=== PATIENT | male | born 1960 | race Caucasian/White ===

== ENCOUNTER 2016-05-23 10:58 | Inpatient (IN) | payer OTHER ==
[~2016-05-23] VITALS: Ht 180.3 cm; Wt 108.9 kg
[2016-05-23 11:04] VITALS: BP 148/75; PULSE 106; RESP 24; TEMP 99.8; O2SAT 93
--- NOTE | 2016-05-23 11:12 | NUR ---
Placed in room 5 . Placed on diagnostic cardiac sonographer, blood pressure machine and pulse oximeter. To gown for exam. Side rails up. Report given to Gaudencio HILLS.
[2016-05-23] MEDS ORDERED: DEXAMETHASONE SOD PHOSPHATE 10 MG/ML VIAL IVP ONE (11:15)
[2016-05-23] MEDS ORDERED: cefTRIAXone 1 GM IVPB PREMIX 50 ML IV ONE (11:15)
[2016-05-23] MEDS ORDERED: NS 1000 ML BAG IV ONE (11:15)
[2016-05-23] MEDS ORDERED: IPRATROPIUM/ALBUTEROL SULFATE 3 ML AMPUL.NEB INH ONE (11:15)
[2016-05-23] MEDS ORDERED: KETOROLAC TROMETHAMINE 30 MG VIAL IVP ONE (11:15)
--- NOTE | 2016-05-23 11:27 | NUR ---
Pt sent by Dr. Todd for possible pneumonia. C/O cough, fever, chills x5 days. Denies chest pain, short of breath with mild to moderate activity.
--- NOTE | 2016-05-23 11:30 | NUR ---
RT at bedside for breathing tx
[2016-05-23 11:34] LABS: BASOPHILS % (AUTO) 0.2 % (0.0-2.0); EOSINOPHILS # (AUTO) 0.1 K/uL (0.0-0.4); EOSINOPHILS % (AUTO) 0.3 % (0.0-4.0); HEMATOCRIT 22.7 % (36-54); HEMOGLOBIN 7.5 g/dL (14.0-18.0); LYMPHOCYTES # (AUTO) 0.8 K/uL (1.0-5.5); LYMPHOCYTES % (AUTO) 3.6 % (20.5-51.5); MEAN CORPUSCULAR HEMOGLOBIN 25 pg (27-31); MEAN CORPUSCULAR HGB CONC 33 % (32-36); MEAN CORPUSCULAR VOLUME 77 fL (79.0-98.0); MONOCYTES % (AUTO) 4.7 % (1.7-9.3); NEUTROPHILS # (AUTO) 19.1 K/uL (1.8-7.7); NEUTROPHILS % (AUTO) 91.2 % (40.0-70.0); PLATELET COUNT (AUTO) 391 K/uL (130-430); RED BLOOD CELL COUNT(AUTO) 2.96 MIL/uL (4.2-6.2); RED CELL DISTRIBUTION WIDTH 15.9 % (9.0-15.0)
[2016-05-23 11:45] LABS: CALCIUM 7.8 mg/dL (8.4-11.0); CREATININE 5.26 mg/dL (0.55-1.30); POTASSIUM 4.5 mmol/L (3.5-5.1)
[2016-05-23 11:49] LABS: INR 1.2 (0.80-1.20)
[2016-05-23 11:50] LABS: ALBUMIN 2.1 g/dL (3.4-4.8); TOTAL BILIRUBIN 0.5 mg/dL (0.0-1.0); TOTAL PROTEIN, SERUM 7.7 g/dL (6.4-8.3)
--- NOTE | 2016-05-23 11:52 | NUR ---
Medicated per MD orders. IVF and IVPB infusing to LAC with no s/s of infiltration. Pt sat 84% RA, states that the breathing treatment didn't help this time. But states "back in January, they helped alot". Pt placed on NC @2L.
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
[2016-05-23] MEDS ORDERED: AZITHROMYCIN 500 MG in NS 250 ML IV ONE (12:00)
[2016-05-23] MEDS ORDERED: NPH,100V SUBCUT ×2 (12:04)
[2016-05-23] MEDS ORDERED: INSU100V7 SUBCUT (12:04)
[2016-05-23] MEDS ORDERED: METO25TA3 PO (12:04)
[2016-05-23] MEDS ORDERED: CLAR500T PO (12:04)
[2016-05-23] MEDS ORDERED: NOR10 PO (12:04)
[2016-05-23] MEDS ORDERED: VANCOMYCIN HCL 1,000 MG in NS 250 ML IV ONE ×2 (12:15→20:00)
[2016-05-23] MEDS ORDERED: VANCOMYCIN HCL 1000 MG/VIAL IV ONE (12:16)
--- NOTE | 2016-05-23 12:46 | NUR ---
Care endorsed to JEANA Casey
--- NOTE | 2016-05-23 13:00 | NUR ---
PT. CARE ASSUMED, PT. IN BED SIDERAILS UP, NO COMPLAINTS AT THIS TIME. STATES THAT HE VOIDED HOWEVER SPILLED URINE ON FLOOR
--- NOTE | 2016-05-23 14:05 | NUR ---
Patient will be admitted to care of DR. RAVI. Admitted to MEDSUR[facility] unit. Will go to room 130 A. Belongings list completed. Summary report printed. Report given to KILEY.
--- NOTE | 2016-05-23 14:10 | NUR ---
Admission Note Received patient from ER with diagnosis of cellulitis and possible sepsis. Initial Plan of Care discussed-patient verbalized understanding. Family at bedside. Oriented to room, call light, pain management and safety.
--- NOTE | 2016-05-23 14:10 | NUR ---
Initial Note Received pt from ER, in stable condition, no s/s of distress or sob noted, pt has no c/o pain at this time. Pt aaox4, verbal. IV catheter patent, no signs of infection or infiltration noted. Bed at lowest position, call light within reach, will continue to monitor pt for any changes. Wound care performed on right foot, 2 wounds, cleansed with normal saline, z guard to periwound, hydrogel to wound bed, covered with foam dressing, kerlix to keep in place, pt tolerated. Fall precautions in place.
[2016-05-23 14:38] VITALS: BP 119/88; PULSE 87; RESP 18; O2SAT 100
[2016-05-23 16:12] VITALS: BP 116/84; PULSE 86; RESP 18; TEMP 98.9; O2SAT 100
--- NOTE | 2016-05-23 16:39 | NUR ---
Rounds Pt in bed, no s/s of distress or sob noted, pt has no c/o pain at this time, pt in stable condition, pt resting comfortably, will continue to monitor pt for any changes.
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
--- NOTE | 2016-05-23 17:15 | NUR ---
Blood Glucose Patients blood glucose was checked and it was 245, no orders for checking as md as not seen him but pt is diabetic, dr keating making his rounds at this time and aware pt needs accucheck orders.
[2016-05-23] MEDS ORDERED: NS 500 ML IV ONE (18:00)
--- NOTE | 2016-05-23 18:00 | NUR ---
CALLED NEPHROLOGY CONSULT TO DR BURTON, DR. MCCONNELL MOLD MACHINE OPERATOR, RE: RENAL FAILURE.. SPOKE TO KAYE
--- NOTE | 2016-05-23 18:01 | NUR ---
CALLED SURGERY CONSULT TO DR ARCHIBALD, RE: CELLULITIS. SPOKE TO KAYE
--- NOTE | 2016-05-23 18:05 | NUR ---
CALLED ID CONSULT TO DR STYLES, RE: CELLULITIS. SPOKE TO WILLIAN
[2016-05-23] MEDS: NACL 0.9% 1,000 ML IV SCH (18:07)
[2016-05-23] MEDS ORDERED: DEXTROSE 50% JECT 50 ML DISP.SYRIN IVP PRN (18:15)
--- NOTE | 2016-05-23 18:28 | NUR ---
Closing Note Pt in bed, in stable condition, no s/s of distress or sob noted, pt has no c/o pain at this time. Pt aaox4, verbal. IV catheter patent, no signs of infection or infiltration noted. Bed at lowest position, call light within reach, will endorse care of pt to incoming nurse. Fall precautions in place. Dr. Anders making his rounds and looked at wound and gave new orders.
[2016-05-23 19:15] LABS: BLOOD GAS PH 7.361 (7.350-7.450)
[2016-05-23 19:16] LABS: BLOOD GAS BASE EXCESS -8.8 mmol/L (-3.0-3.0)
[2016-05-23 19:17] LABS: ABG TOTAL HEMOGLOBIN 7.8 G/dL (12.0-18.0); BLOOD GAS COHb% 0.3 % (0.5-1.5); BLOOD GAS HHB 8.3 % (0.0-6.0); BLOOD O2Hb% 91.1 % (94.0-97.0)
[2016-05-23] MEDS: PIPERACILLIN/TAZO 2.25G/DEX-IS 50 ML IV SCH ×2 (19:26→23:38)
--- NOTE | 2016-05-23 19:40 | NUR ---
initial nursing notes: Patient is awake. Patient has IV fluid infusing on the left AC IV access. Patient denies of having pain at this time. Patient has a dressing on the right foot.
--- NOTE | 2016-05-23 19:41 | NUR ---
PAGED DR JOHN, TAMARA SMALL
[2016-05-23 19:45] VITALS: BP 122/71; PULSE 83; RESP 15; TEMP 97; O2SAT 95
[2016-05-23] MEDS: LACTOBACILLUS RHAMNOSUS GG 1 CAP CAPSULE PO SCH (21:34)
--- NOTE | 2016-05-23 21:40 | NUR ---
nursing rounds: Patient watching television. Notified Dr. Juares regarding total Hemoglobin = 7.8. Dr. Juares made a telephone order to transfuse 1 unit of PRBC. Patient made aware.
--- NOTE | 2016-05-23 23:00 | NUR ---
nursing rounds: Patient is made aware that he will be NPO after midnight for right foot debridement tomorrow per Dr. Kwok. Patient verbalized understanding.
[2016-05-23] MEDS: INSULIN REGULAR, HUMAN 100 UNITS/ML, 10 ML VIAL (novoLIN R) SUBCUT PRN (23:53)
[2016-05-24] VITALS (7 sets, daily range): BP systolic 120–139; BP diastolic 65–72; PULSE 62–82; RESP 16–18; TEMP 97.1–98.2; O2SAT 96–98; Ht 180.3 cm; Wt 108.9 kg
--- NOTE | 2016-05-24 | NUR ---
nursing rounds: Patient requested to hold off with the blood transfusion until after he has discussed with his primary doctor in the morning. Patient declines to sign the consent and wanted to ask his primary doctor if he has other options besides blood transfusion.
--- NOTE | 2016-05-24 00:09 | NUR ---
PAGED DR JOHN, TAMARA DON.
[2016-05-24 01:31] LABS: HEMATOCRIT 21.6 % (36-54); HEMOGLOBIN 6.9 g/dL (14.0-18.0)
--- NOTE | 2016-05-24 01:38 | NUR ---
PAGED DR JOHN, [facility].
[2016-05-24 01:45] LABS: IRON (SERUM) 7 mcg/dL (59-158); TOTAL IRON BIND. CAPACITY 190 ug/dL (250-450)
--- NOTE | 2016-05-24 02:00 | NUR ---
nursing rounds: Paged Dr. Juares to notify latest H & H: 6.9 & 21.6. Waiting for doctor to call back.
--- NOTE | 2016-05-24 03:48 | NUR ---
Pagedanisha Juares, [facility].
--- NOTE | 2016-05-24 04:00 | NUR ---
nursing rounds: Dr. Juares was made aware about latest H & H: 6.9 & 21.6. Patient was also made aware of the latest H& H result. Patient continues to decline to sign the consent and would like to speak his primary doctor in the morning.
[2016-05-24] MEDS: PIPERACILLIN/TAZO 2.25G/DEX-IS 50 ML IV SCH ×3 (05:18→17:54)
[2016-05-24] MEDS: NACL 0.9% 1,000 ML IV SCH (05:20)
--- NOTE | 2016-05-24 06:00 | NUR ---
nursing rounds: Patient calmly resting in bed. Patient has no respiratory distress.
[2016-05-24 06:36] LABS: BASOPHILS % (AUTO) 0.1 % (0.0-2.0); HEMATOCRIT 23.5 % (36-54); HEMOGLOBIN 7.6 g/dL (14.0-18.0); LYMPHOCYTES # (AUTO) 0.7 K/uL (1.0-5.5); LYMPHOCYTES % (AUTO) 3.1 % (20.5-51.5); MEAN CORPUSCULAR HEMOGLOBIN 25 pg (27-31); MEAN CORPUSCULAR HGB CONC 32 % (32-36); MEAN CORPUSCULAR VOLUME 78 fL (79.0-98.0); MONOCYTES # (AUTO) 0.5 K/uL (0.0-1.0); MONOCYTES % (AUTO) 2.5 % (1.7-9.3); NEUTROPHILS # (AUTO) 20.8 K/uL (1.8-7.7); NEUTROPHILS % (AUTO) 94.3 % (40.0-70.0); PLATELET COUNT (AUTO) 356 K/uL (130-430); RED BLOOD CELL COUNT(AUTO) 3.01 MIL/uL (4.2-6.2)
[2016-05-24] MEDS: INSULIN REGULAR, HUMAN 100 UNITS/ML, 10 ML VIAL (novoLIN R) SUBCUT PRN ×4 (06:51→23:25)
[2016-05-24 07:13] LABS: ALBUMIN 1.8 g/dL (3.4-4.8); CALCIUM 7.8 mg/dL (8.4-11.0); CREATININE 4.52 mg/dL (0.55-1.30); TOTAL BILIRUBIN 0.3 mg/dL (0.0-1.0); TOTAL PROTEIN, SERUM 7.4 g/dL (6.4-8.3)
--- NOTE | 2016-05-24 07:30 | NUR ---
rn notes: patient is aaox 4. afebrile. vss stable. lungs bilaterally clear. abdomen soft and non distended. npo status. has iv access on the left ac #18 and lt hand #22. with normal saline at 100cc/hr infusing on well. call lights within reach. safety measures maintained. bed in low position. patient is obese. had a bowel movement x 2 this morning. informed patient to call for assistance.
--- NOTE | 2016-05-24 07:30 | NUR ---
rn notes: patient is aaox 4 afebrile. vss stable. lungs bilaterally clear. abdomen soft and non distended. has iv access on the left ac !8 saline lock. left hand #22 with Normal saline 100c/hr infusing on well. call lights within reach. safety measures maintained. has dressing on the right foot dry/intact. npo status for possible surgery today with Dr Kwok. for debridement. bed in low position. informed patient to call for assistance.
--- NOTE | 2016-05-24 07:43 | NUR ---
closing nursing notes: Patient is awake, alert and oriented X 4. Patient is in no acute respiratory distress. No episodes of fall and no injuries throughout the operation shift supervisor. Provided nursing report to incoming morning shift nurse, JEANA Munguia, at patient's bedside.
--- NOTE | 2016-05-24 08:00 | NUR ---
refusing to signed the consent for blood.
--- NOTE | 2016-05-24 08:07 | NUR ---
spoke to Dr Melinda [facility] regarding the lab results. will come to see the patient.
--- NOTE | 2016-05-24 08:10 | NUR ---
finally signed the consent with proper explanation to the patient.
--- NOTE | 2016-05-24 08:15 | NUR ---
2 units of prbc requesition sent to lab.
[2016-05-24] MEDS: SILVER 44.4 ML GEL.ER.ML. TP SCH (09:00)
--- NOTE | 2016-05-24 09:00 | NUR ---
Dr Juares came to evaluate the patient at this time.
[2016-05-24] MEDS: METOPROLOL SUCCINATE 25 MG TAB.SR.24H (TOPROL XL) PO SCH (09:31)
--- NOTE | 2016-05-24 09:34 | NUR ---
toprol xl po given sip of water.
--- NOTE | 2016-05-24 11:42 | NUR ---
latest bs is 439mg/dl. coverage given and informed .
--- NOTE | 2016-05-24 11:42 | NUR ---
and brother at the bedside.
--- NOTE | 2016-05-24 11:43 | NUR ---
awaiting for dr nunez to come.
--- NOTE | 2016-05-24 12:00 | NUR ---
Dr tyson called for bs is 439mg.dl. order made 4 units of regular insulin given.
[2016-05-24] MEDS ORDERED: INSULIN REGULAR, HUMAN 100 UNITS/ML, 10 ML VIAL (novoLIN R) SUBCUT ONE (12:15)
--- NOTE | 2016-05-24 13:55 | NUR ---
first unit of prbc of blood started at this time. afebrile. and vss stable and documented.
--- NOTE | 2016-05-24 15:50 | NUR ---
Dr Lawrence came and evaluate the patient spoke to the patient and at the bedside.
--- NOTE | 2016-05-24 16:45 | NUR ---
first unite prbc ended at this time. no hemolytic reaction noted. patient is stable no sob nor distress noted.
--- NOTE | 2016-05-24 17:20 | NUR ---
started the 2nd unit prbc. patient stable afebrile. vss stable.
[2016-05-24] MEDS: LACTOBACILLUS RHAMNOSUS GG 1 CAP CAPSULE PO SCH ×2 (17:54→20:43)
--- NOTE | 2016-05-24 18:00 | NUR ---
Dr Yanez covering for Dr Nguyen called and will see the patient tomorrow.
--- NOTE | 2016-05-24 19:00 | NUR ---
please follow up Dr Zambrano endocrinology called. and Dr Yanez covering for Dr Nguyen.
--- NOTE | 2016-05-24 19:18 | NUR ---
Consultation Paged Reason for consultation: Hi Blood Sugar level Was consult called: Yes Person who was notified: Miryam Consulting Physician: Lidia Alexandre; Dr Ennis is on-call for Dr Zambrano Home Health Care Physician Specialty: Endocrinology Home Health Care Physician
--- NOTE | 2016-05-24 19:40 | NUR ---
initial nursing notes: Patient is awake. Patient has IV fluid infusing on the left hand IV access. Patient denies of having pain at this time. Patient has a dressing on the right foot.
--- NOTE | 2016-05-24 19:40 | NUR ---
sbar report given to incoming nurse James HLILS
[2016-05-24] MEDS ORDERED: VANCOMYCIN HCL 750 MG in NS 250 ML IV SCH (20:00)
[2016-05-24] MEDS: LEVOFLOXACIN 250 MG/D5W 50 ML IV SCH (20:44)
--- NOTE | 2016-05-24 21:40 | NUR ---
nursing rounds: Patient ambulatory to the bathroom with assist. Patient has no episode of falls and no injuries.
[2016-05-24] MEDS: CEFTAROLINE FOSAMIL ACETATE 400 MG in NS 250 ML IV SCH (22:52)
--- NOTE | 2016-05-24 23:40 | NUR ---
nursing rounds: Patient's blood glucose was 509 and repeat blood glucose was 491. Dr. Juares was made aware of the blood glucose results. Insulin coverage provided.
[2016-05-25] VITALS (16 sets, daily range): BP systolic 121–174; BP diastolic 67–101; PULSE 73–86; RESP 16–26; TEMP 96.9–98.5; O2SAT 96–99
--- NOTE | 2016-05-25 00:13 | NUR ---
paged for Dr Juares, dialed . s/w Stella.
--- NOTE | 2016-05-25 01:40 | NUR ---
nursing rounds: Patient calmly resting in bed. Call light within patient's reach.
[2016-05-25] MEDS: JECT IV SCH ×3 (01:41→17:00)
[2016-05-25] MEDS: NACL 0.45% IV SCH ×3 (01:41→17:00)
[2016-05-25] MEDS: SODIUM BICARBONATE 8.4% IV SCH ×3 (01:41→17:00)
--- NOTE | 2016-05-25 03:40 | NUR ---
nursing rounds: Patient is asleep. Patient has no shortness of breath.
--- NOTE | 2016-05-25 05:40 | NUR ---
nursing rounds: Patient calmly resting in bed. Patient has no respiratory distress.
[2016-05-25] MEDS: INSULIN REGULAR, HUMAN 100 UNITS/ML, 10 ML VIAL (novoLIN R) SUBCUT PRN ×2 (06:49→13:46)
[2016-05-25 07:29] LABS: ALBUMIN 1.7 g/dL (3.4-4.8); CALCIUM 7.7 mg/dL (8.4-11.0); CREATININE 3.4 mg/dL (0.55-1.30); POTASSIUM 4.8 mmol/L (3.5-5.1); TOTAL BILIRUBIN 0.3 mg/dL (0.0-1.0)
[2016-05-25] MEDS ORDERED: INSULIN ASPART 100 UNITS/ML, 10 ML VIAL SUBCUT ONE ×2 (07:45→22:15)
[2016-05-25 07:49] LABS: HEMATOCRIT 28.2 % (36-54); HEMOGLOBIN 9.3 g/dL (14.0-18.0); MEAN CORPUSCULAR HEMOGLOBIN 26 pg (27-31); MEAN CORPUSCULAR HGB CONC 33 % (32-36); MEAN CORPUSCULAR VOLUME 78 fL (79.0-98.0); PLATELET COUNT (AUTO) 408 K/uL (130-430); RED BLOOD CELL COUNT(AUTO) 3.59 MIL/uL (4.2-6.2); RED CELL DISTRIBUTION WIDTH 16.4 % (9.0-15.0)
--- NOTE | 2016-05-25 08:00 | NUR ---
OPENING NOTES REPORT RECEIVED FROM CONTINUOUS WELD PIPE MILL SUPERVISOR RN. PT HAS CONSISTENTLY HIGH BG THROUGHOUT HIS STAY. PT HAS RECEIVED ONE UNIT OF PRBC'S THIS STAY. MD IS AWARE OF ELEVATED BG AND AN ENDOCRINE CONSULT HAS BEEN CALLED. PATIENT IS EATING BREAKFAST, NO SIGNS OF DISTRESS. DENIES ANY PAIN AT THIS TIME
--- NOTE | 2016-05-25 08:04 | NUR ---
closing nursing notes: Patient is awake, alert and oriented X 4. Patient is in no acute respiratory distress. No episodes of fall and no injuries throughout the president & founder. Provided nursing report to incoming morning shift nurse, JEANA Tucker, at patient's bedside.
--- NOTE | 2016-05-25 08:30 | NUR ---
CRITICAL LAB VALUE RECEIVED, BUN 116, BG 500. DR JOHN ON UNIT AND MADE AWARE
[2016-05-25] MEDS: CEFTAROLINE FOSAMIL ACETATE 400 MG in NS 250 ML IV SCH ×2 (08:43→21:00)
[2016-05-25] MEDS: METOPROLOL SUCCINATE 25 MG TAB.SR.24H (TOPROL XL) PO SCH (08:44)
[2016-05-25] MEDS: LACTOBACILLUS RHAMNOSUS GG 1 CAP CAPSULE PO SCH ×2 (08:44→20:59)
[2016-05-25] MEDS: SILVER 44.4 ML GEL.ER.ML. TP SCH (09:00)
[2016-05-25 09:53] LABS: ATYPICAL LYMPHOCYTES % 0 % (0-0); BAND % (MANUAL) 10 % (0-6); BASOPHILS % (MANUAL) 0 % (0-2); EOSINOPHILS % (MANUAL) 0 % (0-7); LYMPHOCYTES % (MANUAL) 3 % (20-46); MONOCYTES % (MANUAL) 5 % (0-11)
[2016-05-25 10:18] LABS: IRON (SERUM) 21 mcg/dL (59-158); TOTAL IRON BIND. CAPACITY 179 ug/dL (250-450)
[2016-05-25] MEDS ORDERED: INSULIN REGULAR, HUMAN 100 UNITS in NS 99 ML IV PRN ×2 (10:30)
[2016-05-25] MEDS ORDERED: DEXTROSE 50% JECT 50 ML DISP.SYRIN IVP PRN (10:30)
--- NOTE | 2016-05-25 10:40 | NUR ---
DR BERRIOS IN TO SEE PATIENT. ORDERS FOR TSFR TO ICU AND INSULIN GTT PROTOCOL GIVEN. CURRENT FINGERSTICK BG IS 461
--- NOTE | 2016-05-25 11:18 | NUR ---
report given to JEANA aguillon icu. insulin gtt protocol to be initiated in icu.
--- NOTE | 2016-05-25 11:38 | NUR ---
2 units of novolin R ordered routinely. administered per protocol. awaiting icu to take transfer for insulin gtt to be started. no signs of distress, patient's is at the bedside.
[2016-05-25] MEDS: INSULIN REGULAR, HUMAN 100 UNITS/ML, 10 ML VIAL SUBCUT SCH ×2 (11:44→17:00)
--- NOTE | 2016-05-25 13:10 | NUR ---
RECEIVED PT FROM [facility] TO ICU BED 6 VIA WHEELCHAIR. PT ALERT AND ORIENTED AND TRANSFERRED BY HIMSELF FROM CHAIR TO BED. IV TO LEFT AC OCCLUDED AND DOESN'T FLUSH. REMOVED. IV 22G TO LEFT FOREARM INFUSING IVF WITH BICARB AT 100 CC/HR ON PUMP. SR ON MONITOR, VSS. PTS RIGHT FOOT WITH A DRESSING ON IT AND IT HAS A FOUL ODOR. DID NOT ATTEMPT TO FEEL PULSE AT THIS TIME. PT MISSING TOES ON LEFT FOOT. NO 02. LUNGS CLEAR B/L. WILL MONITOR.
--- NOTE | 2016-05-25 13:20 | NUR ---
SECOND IV STARTED TO LEFT AC WITH 18G. LAST ACCUCHECK FROM WAS 461. PER PROTOCOL REGULAR INSULIN 12 UNITS SUBCUT GIVEN. WAITING FOR INSULIN DRIP TO BE BROUGHT FROM PHARMACY.
--- NOTE | 2016-05-25 14:20 | NUR ---
DR ARCHIBALD IN TO SEE PT. HE BRINGS PTS INTO THE NURSING STATION TO DISCUSS SURGICAL OPTIONS. FAMILY IN AGREEMENT WITH DR ARCHIBALD DOING THE SURGERY. CONSULT FOR DR NEWTON CANCELLED. CONSULT FOR DR NEWTON WAS CALLED YESTERDAY BECAUSE DR ARCHIBALD CAME IN TO SEE PT YESTERDAY AND INDICATED THAT HE DID NOT WANT TO DO THE SURGERY.
--- NOTE | 2016-05-25 14:52 | NUR ---
DR MCCONNELL CAME INTO THE ICU WITH PTS ON HER TAILS. THEY SPOKE IN THE [place]ENC[place] OF THE ICU. UPSET ABOUT SOMETHING.
--- NOTE | 2016-05-25 14:58 | NUR ---
DR MCCONNELL IN TO SPEAK WITH PT AND PTS . NOT UPSET ANYMORE. DR MCCONNELL ANSWERED ALL THEIR QUESTIONS.
--- NOTE | 2016-05-25 15:15 | NUR ---
DR MCCONNELL APPROVED PICC LINE INSERTION.
--- NOTE | 2016-05-25 16:30 | NUR ---
SPOKE WITH DR MCRAE REGARDING NEED FOR PICC LINE. ORDERS LEFT.
--- NOTE | 2016-05-25 17:30 | NUR ---
PT ATE 50% OF DINNER. INSULIN DRIP AT 3 U/HR. FAMILY AT BEDSIDE TALKING. WILL CONTINUE TO MONITOR.
[2016-05-25] MEDS: INSULIN REGULAR, HUMAN 100 UNITS in NS 99 ML IV PRN ×6 (18:14→21:07)
--- NOTE | 2016-05-25 18:15 | NUR ---
SPOKE TO PT REGARDING PICC LINE. PT IS IN AGREEMENT. CONSENT SIGNED.
--- NOTE | 2016-05-25 19:30 | NUR ---
REPORT GIVEN TO ONCOMING SHIFT.
[2016-05-25] MEDS: LEVOFLOXACIN 250 MG/D5W 50 ML IV SCH (19:53)
--- NOTE | 2016-05-25 19:55 | NUR ---
PM ASSESSMENT PT ALERT AND ORIENTED TIMES PERSON, PLACE, TIME AND EVENT. PT CALM AND COOPERATIVE. NO SIGNS OF DISTRESS AT THIS TIME. PT DENIES ANY PAIN. SINUS RHYTHM ON CHANGE PERSON. PT ON ROOM AIR. O2 SAT 96%. BREATHING EVEN AND UNLABORED. PERIPHERAL IV 18G NOTED TO LEFT AC DRESSING CLEAN DRY AND INTACT. PERIPHERAL IV 20G NOTED TO LEFT FOREARM DRESSING CLEAN DRY AND INTACT. BOTH SITES HAVE NO SIGNS OF INFECTION OR INFILTRATION. INSULIN DRIP RUNNING @ 3 UNITS/HR. 1/2 NACL SODIUM BICARBONATE 8.4% RUNNING @ 100 ML/HR. PT'S RIGHT FOOT COVERED WITH DRY DRESSING. LEFT FOOT NOTED MISSING THE BIG TOE. FAMILY AT THE BEDSIDE. CALL LIGHT WITHIN REACH. BED AT LOWEST POSITION. CONTINUE TO MONITOR.
--- NOTE | 2016-05-25 20:00 | NUR ---
SPOKE WITH DR PEDRAZA ON THE PHONE TO INFORM HER OF THE PT GOING TO SURGERY TOMORROW AND WILL BE NPO AT MIDNIGHT. ORDERS LEFT FOR LABS, AND SHE WILL CALL BACK LATER TONIGHT WITH MORE ORDERS.
[2016-05-25 20:45] LABS: CALCIUM 7.8 mg/dL (8.4-11.0); CREATININE 3.08 mg/dL (0.55-1.30); POTASSIUM 4.5 mmol/L (3.5-5.1)
--- NOTE | 2016-05-25 22:00 | NUR ---
INSULIN DRIP DR PEDRAZA CALLED ASKING ABOUT BMP RESULT AND GIVING NEW ORDERS FOR BLOOD SUGAR COVERAGE.
--- NOTE | 2016-05-25 22:10 | NUR ---
INSULIN DRIP DISCONTINUATION DISCONTINUE INSULIN DRIP AND GIVE 6 UNITS NOVOLOG AND 40 UNITS NPH STAT ORDERED BY DR PEDRAZA.
[2016-05-25] MEDS ORDERED: INSULIN NPH 100 UNITS/ML 10 ML VIAL SUBCUT ONE (22:15)
[2016-05-26] VITALS (16 sets, daily range): BP systolic 121–154; BP diastolic 66–85; PULSE 73–90; RESP 13–20; TEMP 96–99.8; O2SAT 90–98
[2016-05-26] MEDS: INSULIN ASPART 100 UNITS/ML, 10 ML VIAL (NovoLOG) SUBCUT PRN ×5 (02:10→22:45)
[2016-05-26] MEDS: JECT IV SCH ×3 (05:22→22:12)
[2016-05-26] MEDS: NACL 0.45% IV SCH ×3 (05:22→22:12)
[2016-05-26] MEDS: SODIUM BICARBONATE 8.4% IV SCH ×3 (05:22→22:12)
[2016-05-26] MEDS ORDERED: INSULIN NPH 100 UNITS/ML 10 ML VIAL SUBCUT ONE (06:00)
[2016-05-26 06:51] LABS: ALBUMIN 1.7 g/dL (3.4-4.8); CALCIUM 7.8 mg/dL (8.4-11.0); CREATININE 2.89 mg/dL (0.55-1.30); POTASSIUM 4.2 mmol/L (3.5-5.1); TOTAL BILIRUBIN 0.3 mg/dL (0.0-1.0); TOTAL PROTEIN, SERUM 7.3 g/dL (6.4-8.3)
[2016-05-26 07:02] LABS: BASOPHILS # (AUTO) 0.1 K/uL (0.0-0.2); BASOPHILS % (AUTO) 0.2 % (0.0-2.0); HEMATOCRIT 28.4 % (36-54); HEMOGLOBIN 9.4 g/dL (14.0-18.0); LYMPHOCYTES % (AUTO) 3.8 % (20.5-51.5); MEAN CORPUSCULAR HEMOGLOBIN 26 pg (27-31); MEAN CORPUSCULAR HGB CONC 33 % (32-36); MEAN CORPUSCULAR VOLUME 79 fL (79.0-98.0); MONOCYTES # (AUTO) 1.5 K/uL (0.0-1.0); MONOCYTES % (AUTO) 5.7 % (1.7-9.3); NEUTROPHILS # (AUTO) 23.6 K/uL (1.8-7.7); NEUTROPHILS % (AUTO) 90.3 % (40.0-70.0); PLATELET COUNT (AUTO) 438 K/uL (130-430); RED BLOOD CELL COUNT(AUTO) 3.62 MIL/uL (4.2-6.2); RED CELL DISTRIBUTION WIDTH 16.4 % (9.0-15.0); WHITE BLOOD COUNT (AUTO) 26.2 K/uL (4.8-10.8)
--- NOTE | 2016-05-26 07:30 | NUR ---
AM Assessment Received pt AAOx4, able to verbalize needs. Respirations even and unlabored on 2L O2 via NC. Pt denies any pain or discomfort at this time. Skin warm and dry. Noted L big toe amputation, and R foot wound with gangrene covered in dressing. IV RFA 22G intact, patent with 1/2 NS with 1 amp sodium bicarb at 100 ml/hr. IVSL RAC 20G intact, patent. No signs of infiltration or erythema noted at IV sites. Pt voids via urinal. Oriented pt to room and call light. Bed locked in lowest position. Call light in reach. Will continue to monitor.
[2016-05-26] MEDS: SILVER 44.4 ML GEL.ER.ML. TP SCH (09:00)
[2016-05-26] MEDS: LACTOBACILLUS RHAMNOSUS GG 1 CAP CAPSULE PO SCH ×2 (09:00→22:10)
--- NOTE | 2016-05-26 09:00 | NUR ---
Dr. Orta in to see pt. New orders made. Will continue with plan of care.
--- NOTE | 2016-05-26 09:23 | NUR ---
Nutrition Update Clement Scale 13 noted. Pt admitted for cellulitis possible sepsis. Diet: [facility] BMI: 33.5 kg/m2 RD to follow per nutrition care standards.
--- NOTE | 2016-05-26 09:30 | NUR ---
PICC Line Consent and time out done at bedside. PICC line inserted by Kevin HILLS and verified placement via x-ray. Pt educated and provided materials on risks, benefits, and care for PICC line. Pt verbalized understanding. Will continue to monitor.
--- NOTE | 2016-05-26 10:00 | NUR ---
Round/MRI Dr. Mauricio in to see pt. Pt provided with MRI questionnaire and filled out. Pt stable for transfer to MRI accompanied by RN. VSS, afebrile. Pt on continuous monitoring with portable monitor. Linens changed and replaced.
--- NOTE | 2016-05-26 11:30 | NUR ---
Return from MRI/Hygeine Pt return from MRI via wheelchair. Situated pt in room. VSS, afebrile. No acute distress noted. Pt denies any pain or discomfort. Administered CHG bath for surgery prep. No BM noted. Pt remains NPO for procedure. Will continue to monitor.
[2016-05-26] MEDS: CEFTAROLINE FOSAMIL ACETATE 400 MG in NS 250 ML IV SCH ×2 (11:34→21:55)
[2016-05-26] MEDS ORDERED: MIDAZOLAM HCL 5 MG/5 ML VIAL IVP ONE (13:30)
[2016-05-26] MEDS ORDERED: NS IRRIG SOLN 1000 ML IR ONE (13:30)
[2016-05-26] MEDS ORDERED: LR 1,000 ML IV.SOLN IV ONE (13:30)
[2016-05-26] MEDS ORDERED: ONDANSETRON HCL 4 MG/2 ML VIAL IVP ONE (13:30)
[2016-05-26] MEDS ORDERED: SEVOFLURANE 15 MIN GAS INH ONE (13:30)
[2016-05-26] MEDS ORDERED: PROPOFOL 200MG/ 20ML VIAL (DIPRIVAN) IV ONE (13:30)
--- NOTE | 2016-05-26 13:30 | NUR ---
Transfer to OR Pt stable for transfer via gurney to OR accompanied by Cornell RN and pt's . VSS on RA, afebrile. Preop checklist done, H&P placed in chart. Pt denies any pain or discomfort. Report given to OR nurse.
[2016-05-26] MEDS ORDERED: LR 1,000 ML IV SCH (14:10)
[2016-05-26] MEDS ORDERED: MEPERIDINE HCL/PF 25 MG/ML DISP.SYRIN IVP PRN (14:15)
[2016-05-26] MEDS ORDERED: HYDROmorphone 1 MG INJ. 1 MG/ML AMPUL IVP PRN (14:15)
[2016-05-26] MEDS ORDERED: HYDROmorphone 2 MG/ML VIAL IVP PRN ×2 (14:15)
--- NOTE | 2016-05-26 15:30 | NUR ---
Initial Note Received pt from PACU, pt in stable condition, no s/s of distress or sob noted, pt has no c/o pain at this time, pt in stable condition, pt aaox4, verbal. Pt has a picc line on left upper arm, both ports flush and have blood return, dressing clean and dry, changed 05/26/16. Educated pt on use of incentive spirometer, pt to use 10 times an hour while awake, pt verbalized understanding, pt at 1500ml. Pt has an iv on left hand, left ac flush, no signs of infection or infiltration noted. Bed at lowest position, call light within reach, will continue to monitor pt for any changes, fall precautions in place. Pt has a wound vac on right foot, dressing clean and dry but no wound vac, per report wound vac was not certain so no wound vac is present, charge nurse aware. Pt is status post debridement on right foot. VSS. Addendum: 05/26/16 at 1723 by Iva Saini RN 1600 Wound vac was found, dr nunez was called and gave an order for 75mmhg continuous, wound vac in place, no leakage noted, noted scant amount of dark red drainage.
--- NOTE | 2016-05-26 16:30 | NUR ---
Report Gave report to Humberto HILLS via SBAR tool and provided with completed SBAR tool. All medications sent and stored in med room.
--- NOTE | 2016-05-26 18:50 | NUR ---
Closing Note Pt in bed, no s/s of distress or sob noted, pt has no c/o pain at this time, pt in stable condition, pt aaox4, verbal. Pt has a picc line on left upper arm, both ports flush and have blood return, dressing clean and dry, changed 05/26/16. Educated pt on use of incentive spirometer, pt to use 10 times an hour while awake, pt verbalized understanding, pt at 1500ml. Pt has an iv on left hand, left ac flush, no signs of infection or infiltration noted. Bed at lowest position, call light within reach, will endorse care of pt to incoming nurse, fall precautions in place. Pt has a wound vac on right foot, dressing clean and dry, wound vac in place, continuous suction at 75mmhg, no leakage noted.
--- NOTE | 2016-05-26 19:30 | NUR ---
initial nursing notes: Patient is awake. Patient has IV fluid infusing on the left PICC line. Patient has a woundvac connected to the right foot, draining brownish output.
--- NOTE | 2016-05-26 21:30 | NUR ---
nursing rounds: Patient watching television. Patient denies of having pain.
[2016-05-26] MEDS: LEVOFLOXACIN 250 MG/D5W 50 ML IV SCH (21:49)
--- NOTE | 2016-05-26 23:30 | NUR ---
nursing rounds: Patient calmly resting in bed. Call light within patient's reach.
[2016-05-27 00:52] VITALS: BP 136/82; PULSE 85; RESP 20; TEMP 98.9; O2SAT 94
--- NOTE | 2016-05-27 01:30 | NUR ---
nursing rounds: Patient is asleep. Patient has no shortness of breath.
--- NOTE | 2016-05-27 01:50 | NUR ---
nursing rounds: Patient is asleep. Patient has no shortness of breath.
--- NOTE | 2016-05-27 03:30 | NUR ---
nursing rounds: Patient's blood sugar at around 0300 is 149. No insulin coverage provided.
[2016-05-27 04:59] VITALS: BP 153/80; PULSE 85; RESP 18; TEMP 99.1
--- NOTE | 2016-05-27 05:30 | NUR ---
nursing rounds: Patient is awake, requested for bedsheet and gown to be changed. Patient was cleaned. Bedsheet and gown were changed.
[2016-05-27 06:19] LABS: BASOPHILS # (AUTO) 0.3 K/uL (0.0-0.2); BASOPHILS % (AUTO) 1.1 % (0.0-2.0); EOSINOPHILS # (AUTO) 0.1 K/uL (0.0-0.4); EOSINOPHILS % (AUTO) 0.4 % (0.0-4.0); HEMATOCRIT 29.3 % (36-54); HEMOGLOBIN 9.8 g/dL (14.0-18.0); LYMPHOCYTES # (AUTO) 1.9 K/uL (1.0-5.5); LYMPHOCYTES % (AUTO) 7.2 % (20.5-51.5); MEAN CORPUSCULAR HEMOGLOBIN 26 pg (27-31); MEAN CORPUSCULAR HGB CONC 33 % (32-36); MEAN CORPUSCULAR VOLUME 78 fL (79.0-98.0); MONOCYTES # (AUTO) 1.7 K/uL (0.0-1.0); MONOCYTES % (AUTO) 6.4 % (1.7-9.3); NEUTROPHILS # (AUTO) 22.4 K/uL (1.8-7.7); PLATELET COUNT (AUTO) 459 K/uL (130-430); RED BLOOD CELL COUNT(AUTO) 3.74 MIL/uL (4.2-6.2); RED CELL DISTRIBUTION WIDTH 16.6 % (9.0-15.0); WHITE BLOOD COUNT (AUTO) 26.4 K/uL (4.8-10.8)
[2016-05-27 06:46] LABS: ALBUMIN 1.6 g/dL (3.4-4.8); CALCIUM 7.6 mg/dL (8.4-11.0); CREATININE 2.52 mg/dL (0.55-1.30); POTASSIUM 4.1 mmol/L (3.5-5.1); THYROID STIMULATING HORMONE 2.19 uIu/mL (0.34-4.82); TOTAL BILIRUBIN 0.3 mg/dL (0.0-1.0); TOTAL PROTEIN, SERUM 7.2 g/dL (6.4-8.3)
--- NOTE | 2016-05-27 07:58 | NUR ---
closing nursing notes: Patient is awake, alert and oriented X 4. Patient is in no acute respiratory distress. No episodes of fall and no injuries throughout the awake overnight counselor. Provided nursing report to incoming morning shift nurse, JEANA Mckeon, at patient's bedside.
--- NOTE | 2016-05-27 08:00 | NUR ---
initial notes rec patient awake alert eating breakfast while watching tv. with picc line with double lumen noted. no s/s of infiltration noted. wound vac to t he r foot plantar area in place and working well. no leaking noted. denies pain at this time. bed in low position and side rails up and locked. call light within reached and knows when to call for assists.
[2016-05-27 08:05] VITALS: BP 158/80; PULSE 86; RESP 16; TEMP 98.9; O2SAT 95
[2016-05-27] MEDS: METOPROLOL SUCCINATE 25 MG TAB.SR.24H (TOPROL XL) PO SCH ×2 (09:00→09:13)
[2016-05-27] MEDS: CEFTAROLINE FOSAMIL ACETATE 400 MG in NS 250 ML IV SCH (09:12)
[2016-05-27] MEDS: LACTOBACILLUS RHAMNOSUS GG 1 CAP CAPSULE PO SCH ×2 (09:13→20:48)
--- NOTE | 2016-05-27 10:00 | NUR ---
rounds pt went back to sleep after due meds were given and seen by dr nunez. no acute distress noted.
[2016-05-27 11:15] VITALS: BP 156/80; PULSE 86; RESP 20; TEMP 99.1; O2SAT 93
[2016-05-27 11:15] LABS: NEUTROPHILS % (AUTO) 84.9 % (40.0-70.0)
--- NOTE | 2016-05-27 12:00 | NUR ---
rounds at bedside with patient. no hypo hyperglycemic reaction noted. ssen by dr curry and with orders.
[2016-05-27] MEDS: JECT IV SCH (12:35)
[2016-05-27] MEDS: NACL 0.45% IV SCH (12:35)
[2016-05-27] MEDS: SODIUM BICARBONATE 8.4% IV SCH (12:35)
[2016-05-27] MEDS: INSULIN ASPART 100 UNITS/ML, 10 ML VIAL (NovoLOG) SUBCUT PRN ×3 (12:37→20:57)
[2016-05-27] MEDS: ceFAZolin SODIUM 1 GM in D5W 50 ML IV SCH (12:38)
--- NOTE | 2016-05-27 14:00 | NUR ---
rounds seen by dr keating.
--- NOTE | 2016-05-27 16:00 | NUR ---
rounds wound nurse ingris at bedside and dressing changed done on the r upper ulcer of the r foot. wound vac to the r mid ulcer intact/ no leaking noted. denies pain.
--- NOTE | 2016-05-27 16:15 | NUR ---
WOUND RE-EVALUATION: Patient received in a Welcome Bed with an Atmos-Air 9000 mattress, awake, alert, and oriented. Patient is able to turn independently. Clement Score is a 18. Intrinsic factors that delay wound healing: Diabetes Mellitus. Extrinsic factors that delay wound healing: Decreased mobility. Microbiology: Blood Culture x 2 and Wound Culture positive for Beta-Hemolytic Streptococcus Group B, Staphylococcus Aureus, Bacteroides Fragilis Group (Beta Lactamase Positive), Peptostreptococcus Prevotii (Anaerococcus Prevotii), Beta Lactamase Negative. Patient is status post debridement of right foot wound by Dr. Kwok with wound vac placement. Wound Assessment: 1) Right Foot, Plantar Aspect, at Second Metatarsal Head: Wound, present on admission. Wound bed is 100% pink tissue. No odor, no drainage. Calloused arnaud-wound. Measures 1.4 cm x 2.0 cm x 0.3 cm. Recommend continue: Cleanse wound with normal saline. Place moisture barrier cream onto arnaud-wound. Put Silvasorb Gel onto wound bed. Cover with foam dressing. Secure with transparent dressing. Perform wound care daily, and as needed for dressing soiling or dislodgement. 2) Right Foot, Lateral Border of Fifth Metatarsal Head to Plantar Aspect: Wound, present on admission. Wound Vac running, and not due to be changed until 05/28/16. Dressing not removed for assessment, because doing so would decrease wound temperature and retard wound healing rate. Recommend continue: Cleanse wound with normal saline. Place SurePrep onto arnaud-wound. Put Silvasorb Gel onto wound bed. Cover with silver granufoam dressing. Cover with vac drape. Attach suction attachment and hook to wound vac. Run vac at 75 mmHg, continuous. Perform wound care q Thursday/Thursday/Thursday, and as needed for dressing soiling or dislodgement. Also recommend continue: Encourage and assist patient as needed with repositioning every 2 hours with pillow support, and off-load pressure areas with pillows for pressure re-distribution. Perform skin care and monitor skin integrity Q shift. Use moisture barrier cream on buttocks and other moisture susceptible areas QID and as needed for soiling. Continue to recommend non-weight bearing on right foot wounds, with use of a FWW and an Ortho Shoe.
[2016-05-27 16:20] VITALS: BP 151/76; PULSE 89; RESP 20; TEMP 99.5; O2SAT 93
[2016-05-27] MEDS: SILVER 44.4 ML GEL.ER.ML. TP SCH (18:10)
--- NOTE | 2016-05-27 18:30 | NUR ---
closing notes denies pain, no hypo hyperglycemic reaction noted. stable needs attended. picc line on the l arm intact. no inifltration noted. call light within reached.
--- NOTE | 2016-05-27 19:50 | NUR ---
PM SHIFT ASSESSMENT Received patient in bed ,aox4, vital signs stable. Denies any pain or discomfort to right foot. Right foot with wound vac in place. Brownish drainage noted. Patient has left upper arm picc line, no signs of infiltration noted, IVF infusing well. POC discussed with patient, verbalized understanding, compliant. Oriented to use the call light for nurse assistance, call light within reach, safety measures in place, will monitor. Addendum: 05/28/16 at 0736 by Noy Mackay RN Patient educated on use of incentive spirometer, at least 10 times every hour while awake, patient verbalized understanding, able to inspire up to 2500 ml.
[2016-05-27 20:00] VITALS: BP 153/71; PULSE 89; RESP 20; TEMP 99.1; O2SAT 94
[2016-05-27] MEDS: DOXYCYCLINE HYCLATE 100 MG CAPSULE PO SCH (20:48)
[2016-05-27] MEDS: LEVOFLOXACIN 250 MG/D5W 50 ML IV SCH (20:49)
--- NOTE | 2016-05-27 22:00 | NUR ---
RN ROUNDS Patient's due medications given, blood sugar check this pm of 262. Covered with insulin sliding scale per Md order. Patient denies any pain or discomfort at this time. Safety measures in place, call light remains within reach, will monitor.
--- NOTE | 2016-05-27 23:27 | NUR ---
RN ROUNDS Patient resting quietly in bed, denies any pain or discomfort at this time, IVF infusing. Call light within reach, will continue to monitor.
--- NOTE | 2016-05-28 00:41 | NUR ---
RN ROUNDS Patient awake, denies any pain or discomfort at this time, has slight temperature, cooling measures applied, vitals stable.
[2016-05-28] MEDS: SODIUM BICARBONATE 8.4% IV SCH ×2 (00:45→10:00)
[2016-05-28] MEDS: JECT IV SCH ×2 (00:45→10:00)
[2016-05-28] MEDS: NACL 0.45% IV SCH ×2 (00:45→10:00)
[2016-05-28 01:29] VITALS: BP 149/72; PULSE 83; RESP 18; TEMP 100.3; O2SAT 92
--- NOTE | 2016-05-28 02:34 | NUR ---
RN ROUNDS Patient sleeping, respirations even and unlabored, IVF ongoing, safety measures in place, call light within reach, will monitor.
[2016-05-28 04:00] VITALS: BP 142/71; PULSE 82; RESP 18; TEMP 99.7; O2SAT 92
--- NOTE | 2016-05-28 04:30 | NUR ---
RN ROUNDS Patient awake, watching tv, denies any pain or discomfort at this time, vital signs stable. Safety measures in place, call light within reach, will monitor.
--- NOTE | 2016-05-28 06:18 | NUR ---
RN ROUNDS Patient's awake, denies any pain or discomfort at this time, blood sugar check this am of 148. Levemir sq given this am per md order. Patient needs attended to, safety measures maintained, call light remains within reach, will continue to monitor until report given to am nurse.
[2016-05-28 07:36] LABS: CALCIUM 7.1 mg/dL (8.4-11.0); CREATININE 2.43 mg/dL (0.55-1.30); POTASSIUM 4.2 mmol/L (3.5-5.1)
[2016-05-28 08:00] VITALS: BP 136/74; PULSE 85; RESP 18; TEMP 98.5
--- NOTE | 2016-05-28 08:20 | NUR ---
OPENING NOTE PATIENT IS DROWSY BUT WAKING UP, TOLERATING BREAKFAST WELL. DENIES ANY PAIN AT THIS TIME. DRESSING TO R FOOT DRY, INTACT AND ATTACHED TO WOUND VAC. PER LAP CUTTER BG HAS BEEN CONTROLLED SINCE ARRIVAL TO MED-SURG FLOOR. A&OX4, USES URINAL AND BEDPAN. NO SIGNS OF ACUTE DISTRESS. RLE 2+ PITTING EDEMA. LUNGS CLEAR TO BASES.
--- NOTE | 2016-05-28 08:42 | NUR ---
HCP/PA: Theron Obrien Surgical boot ordered [employer] [id number] FWW ordered [employer] [id number] Wound Pump ordered [employer] [id number]. Intake form for wound pump was given to wound care nurse as instruction.
[2016-05-28] MEDS: ceFAZolin SODIUM 1 GM in D5W 50 ML IV SCH (08:44)
[2016-05-28] MEDS: LACTOBACILLUS RHAMNOSUS GG 1 CAP CAPSULE PO SCH (08:44)
[2016-05-28] MEDS: DOXYCYCLINE HYCLATE 100 MG CAPSULE PO SCH ×2 (08:45→21:51)
[2016-05-28] MEDS: METOPROLOL SUCCINATE 25 MG TAB.SR.24H (TOPROL XL) PO SCH (08:45)
[2016-05-28] MEDS: SILVER 44.4 ML GEL.ER.ML. TP SCH (08:46)
--- NOTE | 2016-05-28 11:30 | NUR ---
PATIENT UP AND AMBULATING WITH PHYSICAL THERAPY
[2016-05-28 12:00] VITALS: BP 147/76; PULSE 84; RESP 20; TEMP 99.5; O2SAT 97
[2016-05-28 13:33] LABS: BASOPHILS # (AUTO) 0.1 K/uL (0.0-0.2); BASOPHILS % (AUTO) 0.2 % (0.0-2.0); EOSINOPHILS # (AUTO) 0.3 K/uL (0.0-0.4); HEMOGLOBIN 8.8 g/dL (14.0-18.0); MEAN CORPUSCULAR VOLUME 80 fL (79.0-98.0)
[2016-05-28 13:36] LABS: HEMATOCRIT 26.5 % (36-54); LYMPHOCYTES # (AUTO) 1.3 K/uL (1.0-5.5); LYMPHOCYTES % (AUTO) 4.7 % (20.5-51.5); MEAN CORPUSCULAR HEMOGLOBIN 26 pg (27-31); MEAN CORPUSCULAR HGB CONC 33 % (32-36); MONOCYTES % (AUTO) 3.7 % (1.7-9.3); NEUTROPHILS # (AUTO) 25.1 K/uL (1.8-7.7); NEUTROPHILS % (AUTO) 90.4 % (40.0-70.0); PLATELET COUNT (AUTO) 400 K/uL (130-430); RED BLOOD CELL COUNT(AUTO) 3.33 MIL/uL (4.2-6.2); RED CELL DISTRIBUTION WIDTH 16.3 % (9.0-15.0); WHITE BLOOD COUNT (AUTO) 27.8 K/uL (4.8-10.8)
[2016-05-28 16:43] VITALS: BP 137/77; PULSE 89; RESP 20; TEMP 99.9; O2SAT 93
--- NOTE | 2016-05-28 18:00 | NUR ---
PATIENT BG REMAINED STABLE THROUGHOUT THE DAY. NO COVERAGE NEEDED. UNABLE TO PERFORM WOUND CARE DUE TO HEAVY ASSIGNMENT LOAD. EXPLAINED THIS TO PATIENT WHO VERBALIZED UNDERSTANDING. I APOLOGIZED. MEDICATED ORDERED WITH LEVAQUIN IV.
[2016-05-28] MEDS: INSULIN ASPART 100 UNITS/ML, 10 ML VIAL SUBCUT SCH (18:05)
[2016-05-28] MEDS: LEVOFLOXACIN 250 MG/D5W 50 ML IV SCH (18:38)
--- NOTE | 2016-05-28 19:45 | NUR ---
CARE ENDORSED TO JEANA HAGEN. EXPLAINED I WAS UNABLE TO CHANGE WOUND DRESSING/VAC DURING MY SHIFT. ENDORSED PLAN OF CARE TO SD HOME TOMORROW WITH HH FOR WOUND CARE AND IV ANTIBIOTICS. GAVE XIAO PTS DOXYCYCLINE PRESCRIPTION WELL. PATIENT REMAINS PAIN FREE, NO SIGNS OF DISTRESS. ENDORSED TO XIAO WOUND VAC TO BE CHANGED TONIGHT AND PHOTOS NEED TO BE TAKEN WELL.
--- NOTE | 2016-05-28 20:00 | NUR ---
ROUNDS PATIENT AWAKE, VITALS STABLE, DENIES ANY PAIN AND DISCOMFORT AT THIS TIME. ASSESSMENT DONE AND DOCUMENTED. SEE FLOWSHEET. NEEDS ATTENDED TO. SAFETY AND FALL PRECAUTION MEASURES IN PLACED. CALL LIGHT PLACED WITH PATIENT.
--- NOTE | 2016-05-28 22:30 | NUR ---
WOUND VAC WOUND VAC DRESSING CHANGE DONE, TOLERATED WELL. PICTURES TAKEN, NEEDS ATTENDED TO. WILL CONTINUE TO MONITOR.
[2016-05-29] VITALS (8 sets, daily range): BP systolic 139–154; BP diastolic 66–75; PULSE 81–93; RESP 16–19; TEMP 98.9–100.9; O2SAT 90–94
--- NOTE | 2016-05-29 | NUR ---
PATIENT RESTING: Patient resting quietly. No acute distress noted. Vital signs within normal range.
[2016-05-29] MEDS: JECT IV SCH ×2 (00:32→09:12)
[2016-05-29] MEDS: NACL 0.45% IV SCH ×2 (00:32→09:12)
[2016-05-29] MEDS: SODIUM BICARBONATE 8.4% IV SCH ×2 (00:32→09:12)
--- NOTE | 2016-05-29 02:00 | NUR ---
ROUNDS, PATIENT ASLEEP, NO SOB, NOTED, WILL CONTINUE TO MONITOR.
--- NOTE | 2016-05-29 04:00 | NUR ---
PATIENT RESTING: Patient resting quietly. No acute distress noted. Vital signs within normal range.
[2016-05-29 06:40] LABS: EOSINOPHILS # (AUTO) 0.4 K/uL (0.0-0.4); EOSINOPHILS % (AUTO) 1.4 % (0.0-4.0); HEMATOCRIT 25.9 % (36-54); HEMOGLOBIN 8.4 g/dL (14.0-18.0); LYMPHOCYTES # (AUTO) 1.3 K/uL (1.0-5.5); LYMPHOCYTES % (AUTO) 4.8 % (20.5-51.5); MEAN CORPUSCULAR HEMOGLOBIN 26 pg (27-31); MEAN CORPUSCULAR HGB CONC 33 % (32-36); MEAN CORPUSCULAR VOLUME 79 fL (79.0-98.0); MONOCYTES # (AUTO) 1.9 K/uL (0.0-1.0); MONOCYTES % (AUTO) 7.1 % (1.7-9.3); NEUTROPHILS # (AUTO) 22.7 K/uL (1.8-7.7); PLATELET COUNT (AUTO) 393 K/uL (130-430); RED BLOOD CELL COUNT(AUTO) 3.26 MIL/uL (4.2-6.2); RED CELL DISTRIBUTION WIDTH 16.8 % (9.0-15.0); WHITE BLOOD COUNT (AUTO) 26.3 K/uL (4.8-10.8)
[2016-05-29] MEDS: INSULIN ASPART 100 UNITS/ML, 10 ML VIAL SUBCUT SCH ×3 (06:49→17:19)
--- NOTE | 2016-05-29 06:50 | NUR ---
CLOSING NOTES PATIENT AWAKE, VITALS STABLE, REPEAT BLOOD SUGAR DONE-100 MG/DL FROM 63 TAKEN EARLIER. DENIES ANY SYMPTOMS OF HYPOGLYCEMIA. SCHEDULED INSULIN MEDICATIONS NOT GIVEN. ALL NEEDS MET. SAFETY MEASURES MAINTAINED. CALL LIGHT PLACED WITH PATIENT.
[2016-05-29 07:15] LABS: ALBUMIN 1.3 g/dL (3.4-4.8); CALCIUM 7.2 mg/dL (8.4-11.0); CREATININE 2.38 mg/dL (0.55-1.30); TOTAL BILIRUBIN 0.3 mg/dL (0.0-1.0); TOTAL PROTEIN, SERUM 6.5 g/dL (6.4-8.3)
--- NOTE | 2016-05-29 08:00 | NUR ---
RECIVED PT IN BED, NO C/O PAIN, PT STATED HE FEELS FINE, NO DISTRESS NOTED, WOUND VAC CONNECTED AND FUNCTIONAL WITH BROWNIS DRAINAGE. USES URINAL WITH YELLOW CLEAR URINE.
--- NOTE | 2016-05-29 08:58 | NUR ---
HCP/PA: Made AYDEN Obrien aware of order for wound vac. Camille stated ordered thru [facility] [phone] and pending order to be completed by wound care nurse. Copy in patient chart and was placed on wound care nurse desk. Camille will follow up.
[2016-05-29] MEDS: DOXYCYCLINE HYCLATE 100 MG CAPSULE PO SCH (09:07)
[2016-05-29] MEDS: METOPROLOL SUCCINATE 25 MG TAB.SR.24H (TOPROL XL) PO SCH (09:08)
[2016-05-29] MEDS: ceFAZolin SODIUM 1 GM in D5W 50 ML IV SCH (09:09)
[2016-05-29] MEDS: SILVER 44.4 ML GEL.ER.ML. TP SCH (09:10)
--- NOTE | 2016-05-29 11:05 | NUR ---
Nutrition F/U Admitting Diagnosis Cellulitis, Possible Sepsis Past Medical/Surgical History Probable sepsis, R leg cellulitis, DM, HTN, renal failure, L foot toe amputation Subjective Information 05/26 Surgery: Excisional debridement of R foot ulcer with wound vac. Post-Op Diagnosis: Cellulitis, R Foot. Pt was seen resting in bed, appears overly-nourished, consistent with documented anthropometrics. Pt reported good appetite, no issues with food so far. RD offered nutrition education, pt declined, reported he has education from [employer] every other year, is doing fine so far, no further education needed. RD acknowledged. Food Allergies: Shellfish Current Appetite: Good PO Intakes: (05/28) B: 90%, L: 80%, D: 40%; (05/27) B: 90%, L: 90%, D: 100% Problem With: N: None. V: None. D: None. C: None. Skin: R Foot wound connected to wound vac. Clement 18. Please refer to Wound Care note 05/27/16 for further details. Edema: 2+ pitting edema RLE GI: Last BM 05/28 Verified with pt, normal BM. Current Diet Order/Nutrition Support CCHO-60 gm Pertinent Medications Novolog, levemir, SSI, D50%, sodium bicarbonate, D50% Pertinent Labs WBC 26.3 H, H/H 8.4/25.9 L, BUN 54 H, CRE 2.38 H, eGFR 30 L, BG 60 L, POC BG 100 H, ALP 212 H, ALB 1.3 L (05/24) A1C 9.1 H Ht: 71, 5 11 Weight: 240 lb, 108 kg. BMI: 33.47 kg/m2 (Obesity Class I) UBW (Dry Weight): 220 lb, 100 kg. %UBW: 110% IBW: 172 lb, 78 kg. %IBW: 139% Recent Weight Change: +20 lb. % Weight Change: 9% weight gain likely due to fluids Estimated Nutritional Needs Based on Dry Weight 220 lb, [address] adjusted needs due to wound healing. Estimated Energy Expenditure (kcals/day) 0610-6467 kcal/day (23-25 kcal/kg for CKD, Wound Healing) Estimated Protein Required (gm/day) 80-120 gm/day (0.8-1.2 gm/kg for CKD, Wound Healing) Estimated Fluid Required (L/day) Per MD (CKD) Problem/Etiology/Signs/Symptoms 1. Altered nutrition-related lab values related to kidney and endocrine dysfunction as evidenced by abnormal BUN, CRE, eGFR, Na, and BG lab values and presence of edema -- *Ongoing 2. Increase protein needs related to altered skin integrity as evidenced by R foot wound connected to wound vac Expected Outcomes/Goals Goal: PO intake to meet >75% of estimated needs; Wound Healing Monitor: PO intakes, tolerance to diet, weights, GI function, skin integrity, labs Dietitian Recommendations 1. Recommend CCHO-60 gm, 2 gm Na diet. Note pt with renal failure and edema. 2. Consider weekly weights. Follow Up LOW Risk: F/U in 7 days (06/05)
--- NOTE | 2016-05-29 11:19 | NUR ---
Notes Building Construction Estimator from [facility] has seen patient and at bedside. Explained infusion of IV antibiotics.
[2016-05-29] MEDS: INSULIN ASPART 100 UNITS/ML, 10 ML VIAL (NovoLOG) SUBCUT PRN ×2 (11:39→17:21)
[2016-05-29 11:55] LABS: NEUTROPHILS % (AUTO) 86.7 % (40.0-70.0)
--- NOTE | 2016-05-29 14:44 | NUR ---
Notes Wound vac and one bag of supplies delivered to [place] nurse's station then taken to patient's room. Patient acknowledged receiving them.
--- NOTE | 2016-05-29 15:10 | NUR ---
Notes Spoke with Camille from [facility] in regards to home health company and Wound vac. She stated she will call me when home health company is finalized.
--- NOTE | 2016-05-29 15:49 | NUR ---
PT IN BED, FAMILY AT BEDSIDE, SUPPLIES FOR HOME USE ( WOUND VAC ) AT BEDSIDE. NO C/O PAIN. NO SOB. NO DISTRESS, RESTING INBED.
[2016-05-29] MEDS ORDERED: ACETAMINOPHEN 325 MG TABLET PO PRN (16:15)
--- NOTE | 2016-05-29 16:56 | NUR ---
DR MCRAE IS HERE AND MADE AWARE THAT PT HAVE FEVER OF 100.9 F AND ASK MD IF OKAY TO DISCHARGE PT HOME. SAID IT IS OKAY. SAID PT IS GOING HOME WITH IV ANCEF AND PO ANTIBIOTICS.
[2016-05-29] MEDS ORDERED: EPOETIN ALFA 4,000 UNITS/ML VIAL SUBCUT SCH (17:00)
--- NOTE | 2016-05-29 18:00 | NUR ---
Notes Dr. Orta has been paged to inform discharge is ok per Dr. Olivares and to obtain discharge order.
--- NOTE | 2016-05-29 18:00 | NUR ---
PT IN BED, FAMILY AT BEDSIDE. NO C/O PAIN. NO DISTRESS THIS TIME. WOUND VAC FUNCTIONAL AND WITH DRAINAGE.
--- NOTE | 2016-05-29 18:45 | NUR ---
WOUND RE-EVALUATION: Patient received in a [place] Bed with an Atmos-Air 9000 mattress, awake, alert, and oriented. Patient is able to turn independently. Clement Score is an 18. Intrinsic factors that delay wound healing: Diabetes Mellitus. Extrinsic factors that delay wound healing: Decreased mobility. Patient is status post debridement of right foot wound by Dr. Kwok with wound vac placement. Right lower extremity has calor. Wound Assessment: 1) Right Foot, Plantar Aspect, at Second Metatarsal Head: Diabetic Ulcer, present on admission. Wound bed is 100% red tissue. No odor, no drainage. Calloused arnaud-wound. Measures 1.4 cm x 2.0 cm x 0.2 cm. Recommend continue: Cleanse wound with normal saline. Place moisture barrier cream onto arnaud-wound. Put Silvasorb Gel onto wound bed. Cover with foam dressing. Secure with transparent dressing. Perform wound care daily, and as needed for dressing soiling or dislodgement. 2) Right Foot, Lateral Border of Fifth Metatarsal Head to Plantar Aspect: Diabetic Ulcer, present on admission. Wound bed is 10% black tissue (not eschar), 15% pink tissue, 75% yellow tissue. No odor, no drainage. Calloused arnaud-wound. Measures 7.0 cm x 9.1 cm x 1.5 cm. Recommend continue: Cleanse wound with normal saline. Place SurePrep onto arnaud-wound. Put Silvasorb Gel onto wound bed. Cover with silver granufoam dressing. Cover with vac drape. Attach suction attachment and hook to wound vac. Run vac at 75 mmHg, continuous. Perform wound care q Thursday/Thursday/Thursday, and as needed for dressing soiling or dislodgement. Also recommend continue: Encourage and assist patient as needed with repositioning every 2 hours with pillow support, and off-load pressure areas with pillows for pressure re-distribution. Perform skin care and monitor skin integrity Q shift. Use moisture barrier cream on buttocks and other moisture susceptible areas QID and as needed for soiling. Informed patient that he needs to be non-weight bearing on right foot wounds, with use of a FWW and an Ortho Shoe. Patient brought a non-weight bearing orthopedic shoe that was recommended by his doctor. Informed patient that the wound would need further debridement, and to follow up with his Biofuels Production Associate within a week, or sooner. Wound Vac/supplies have arrived, IV antibiotics with Home Health and Home Health Wound Care were confirmed.
--- NOTE | 2016-05-29 19:20 | NUR ---
CLOSING NOTES; ENDORSED TO NIGHT RN. INFORMED NIGHT RN THAT WE PAGED DR RAVI TO GET FINAL ORDER FOR DISCHARGE AFTER PT WAS CLEARED BY DR STYLES BUT MD HAS NOT CALLED BACK YET.
--- NOTE | 2016-05-29 20:00 | NUR ---
ROUNDS PATIENT IN BED, AWAKE, ALERT, ORIENTED, VITALS STABLE. DENIES ANY PAIN AND DISCOMFORT AT THIS TIME. PATIENT BEING PREPARED FOR DISCHARGE TO HOME AT THIS TIME ORDERED. AT THE BEDSIDE. TRANSITION ORDER INSTRUCTIONS GIVEN AND PATIENT AND VERBALIZED UNDERSTANDING. BELONGINGS CHECKED, PRESCRIPTION FOR MEDICATIONS GIVEN. NEEDS ATTENDED TO.
--- NOTE | 2016-05-29 21:15 | NUR ---
CLOSING NOTES PATIENT DISCHARGED TO HOME WITH FAMILY ORDERED WITH STABLE VITAL SIGNS VIA WHEEL CHAIR TO THEIR PRIVATE CAR OUTSIDE. ALL NEEDS MET, DENIES ANY PAIN AND DISCOMFORT AT THIS TIME.
[2016-05-31] MEDS ORDERED: EPOETIN ALFA 4,000 UNITS/ML VIAL SUBCUT SCH (17:00)
--- NOTE | 2016-06-03 16:30 | NUR ---
Discharge Follow Up Phone Call SHEET CUTTING OPERATOR phoned patient, . Patient stated he was doing okay. He sounded sob. SHEET CUTTING OPERATOR asked how long patient had been sob. Patient stated he was that way in the hospital and it has not worsened. SHEET CUTTING OPERATOR told patient to phone his PCP or go to the ED if symptoms worsened and to discuss sob with his PCP at his follow up appointment with his PCP on 06/06/16. Patient stated he also has a follow up appointment made with the infectious disease and endocrinology physicians. Patient stated his daughter has been taught to give the IV antibiotics. He has been using the wound vac as directed. He is monitoring his blood sugar as directed. Patient has no questions or concerns. No further follow up calls requested.
== END 2016-05-29 21:15 | disposition home health service (06) | DRG 853 ==
LOC: SED 10:58 → SMU 13:49 → SIC 05-25 13:10 → SMU 05-26 16:22
PROVIDERS: ADMIT Internal Medicine Hospice and Palliative Medicine; ATTEND Internal Medicine Hospice and Palliative Medicine
PROC: 30233N1 Transfusion of Nonautologous Red Blood Cells into Peripheral Vein, Percutaneous Approach (ICD-10-PCS; principal; 2016-05-24)
PROC: 0SBM0ZZ Excision of Right Metatarsal-Phalangeal Joint, Open Approach (ICD-10-PCS; 2016-05-26)
PROC: 0QBN0ZZ Excision of Right Metatarsal, Open Approach (ICD-10-PCS; 2016-05-26)
PROC: 02HV33Z Insertion of Infusion Device into Superior Vena Cava, Percutaneous Approach (ICD-10-PCS; 2016-05-26)
DX: A41.9 Sepsis, unspecified organism (principal); N17.0 Acute kidney failure with tubular necrosis; L03.115 Cellulitis of right lower limb; E87.2 Acidosis; M86.8X7 Other osteomyelitis, ankle and foot; I12.9 Hypertensive chronic kidney disease with stage 1 through stage 4 chronic kidney disease, or unspecified chronic kidney disease; N18.3 Chronic kidney disease, stage 3 (moderate); E11.65 Type 2 diabetes mellitus with hyperglycemia; E11.69 Type 2 diabetes mellitus with other specified complication; E11.22 Type 2 diabetes mellitus with diabetic chronic kidney disease; E66.9 Obesity, unspecified; E11.319 Type 2 diabetes mellitus with unspecified diabetic retinopathy without macular edema; E11.40 Type 2 diabetes mellitus with diabetic neuropathy, unspecified; E11.621 Type 2 diabetes mellitus with foot ulcer; L97.519 Non-pressure chronic ulcer of other part of right foot with unspecified severity; D64.9 Anemia, unspecified; Z89.422 Acquired absence of other left toe(s); Z68.33 Body mass index [BMI] 33.0-33.9, adult; Z79.4 Long term (current) use of insulin; Z83.3 Family history of diabetes mellitus
CPT/HCPCS: 36415; 36600; 71010; 73721; 80048; 80053; 82803-TC; 82962; 83036; 83051; 83540-TC; 83550-TC; 83605; 84443-TC; 85007; 85014-TC; 85025; 85027; 85610-TC; 85730-TC; 86710; 86886; 86900; 86901; 86920; 87040-TC; 87070-TC; 87075-TC; 87081; 87186-TC; 88304; 88305; 88311; 93005; 93922; 93923; 93971; 94640; 96361; 96365; 96375; 97110-GP; 97116-GP; 99291; A6261; A6550; C1751; J0690; J0696; J0712; J0885; J1100; J1815; J1885; J1956; J2250; J2405; J2543; J2704; J3370; J7030; J7040; J7050; J7060; J7120; P9021

== ENCOUNTER 2016-06-07 08:29 | Inpatient (IN) | payer OTHER ==
[~2016-06-07] VITALS: Ht 185.4 cm; Wt 111.1 kg
[~2016-06-07 08:29] MED LIST: INSU100V7 SUBCUT; METO25TA3 PO; NOR10 PO; NPH,100V SUBCUT
[2016-06-07 08:36] VITALS: BP_SYST 134
[2016-06-07] MEDS ORDERED: cefTRIAXone 1 GM IVPB PREMIX 50 ML IV ONE (09:00)
[2016-06-07] MEDS ORDERED: NS 1000 ML BAG IV ONE (09:00)
[2016-06-07 09:15] LABS: BASOPHILS % (AUTO) 0.1 % (0.0-2.0); EOSINOPHILS # (AUTO) 0.1 K/uL (0.0-0.4); EOSINOPHILS % (AUTO) 0.6 % (0.0-4.0); LYMPHOCYTES % (AUTO) 5.7 % (20.5-51.5); MEAN CORPUSCULAR HEMOGLOBIN 25 pg (27-31); MEAN CORPUSCULAR HGB CONC 33 % (32-36); MEAN CORPUSCULAR VOLUME 77 fL (79.0-98.0); MONOCYTES # (AUTO) 1.6 K/uL (0.0-1.0); MONOCYTES % (AUTO) 8.8 % (1.7-9.3); NEUTROPHILS # (AUTO) 15.6 K/uL (1.8-7.7); NEUTROPHILS % (AUTO) 84.8 % (40.0-70.0); PLATELET COUNT (AUTO) 469 K/uL (130-430); RED CELL DISTRIBUTION WIDTH 17.3 % (9.0-15.0); WHITE BLOOD COUNT (AUTO) 18.3 K/uL (4.8-10.8)
[2016-06-07 09:30] LABS: HEMATOCRIT 20.6 % (36-54); HEMOGLOBIN 6.7 g/dL (14.0-18.0)
[2016-06-07 09:52] LABS: CREATININE 2.75 mg/dL (0.55-1.30); POTASSIUM 4.5 mmol/L (3.5-5.1)
[2016-06-07 09:57] LABS: ALBUMIN 1.2 g/dL (3.4-4.8); TOTAL PROTEIN, SERUM 7.1 g/dL (6.4-8.3)
[2016-06-07 10:04] LABS: CALCIUM 6.9 mg/dL (8.4-11.0)
[2016-06-07 10:30] LABS: INR 1.4 (0.80-1.20); PROTHROMBIN TIME 15.5 SECS (9.5-12.5)
[2016-06-07 16:00] VITALS: BP_SYST 142
[2016-06-07 20:00] VITALS: BP_SYST 147
[2016-06-07] MEDS ORDERED: INSULIN ASPART 100 UNITS/ML, 10 ML VIAL SUBCUT SCH (21:00)
[2016-06-07] MEDS: DOXYCYCLINE HYCLATE 100 MG CAPSULE PO SCH (22:04)
[2016-06-07] MEDS: ceFAZolin SODIUM 2 GM in D5W 100 ML IV SCH (22:04)
[2016-06-07] MEDS: INSULIN ASPART 100 UNITS/ML, 10 ML VIAL (NovoLOG) SUBCUT PRN (22:11)
[2016-06-07] MEDS: MORPHINE 2 MG/ML INJ. SYRINGE IVP PRN (23:58)
[2016-06-08] VITALS: BP_SYST 137
[2016-06-08 04:00] VITALS: BP_SYST 137
[2016-06-08] MEDS: ceFAZolin SODIUM 2 GM in D5W 100 ML IV SCH ×2 (05:20→14:49)
[2016-06-08] MEDS: INSULIN ASPART 100 UNITS/ML, 10 ML VIAL (NovoLOG) SUBCUT PRN ×2 (06:43→12:38)
[2016-06-08 07:15] LABS: HEMATOCRIT 25.8 % (36-54); HEMOGLOBIN 8.7 g/dL (14.0-18.0); MEAN CORPUSCULAR HEMOGLOBIN 27 pg (27-31); MEAN CORPUSCULAR HGB CONC 34 % (32-36); MEAN CORPUSCULAR VOLUME 79 fL (79.0-98.0); PLATELET COUNT (AUTO) 473 K/uL (130-430); RED BLOOD CELL COUNT(AUTO) 3.25 MIL/uL (4.2-6.2); RED CELL DISTRIBUTION WIDTH 17.5 % (9.0-15.0); WHITE BLOOD COUNT (AUTO) 18.3 K/uL (4.8-10.8)
[2016-06-08 07:53] LABS: ALBUMIN 1.3 g/dL (3.4-4.8); CALCIUM 7.5 mg/dL (8.4-11.0); CREATININE 2.64 mg/dL (0.55-1.30); POTASSIUM 4.9 mmol/L (3.5-5.1); TOTAL BILIRUBIN 0.7 mg/dL (0.0-1.0); TOTAL PROTEIN, SERUM 7.8 g/dL (6.4-8.3)
[2016-06-08] MEDS ORDERED: amLODIPine BESYLATE 10 MG TABLET PO SCH (09:00)
[2016-06-08] MEDS ORDERED: METOPROLOL SUCCINATE 25 MG TAB.SR.24H (TOPROL XL) PO SCH (09:00)
[2016-06-08 09:06] VITALS: BP_SYST 128
[2016-06-08] MEDS: DOXYCYCLINE HYCLATE 100 MG CAPSULE PO SCH (09:50)
[2016-06-08] MEDS: MORPHINE 2 MG/ML INJ. SYRINGE IVP PRN ×2 (09:59→15:03)
[2016-06-08 10:31] LABS: ATYPICAL LYMPHOCYTES % 0 % (0-0); BAND % (MANUAL) 3 % (0-6); BASOPHILS % (MANUAL) 0 % (0-2); EOSINOPHILS % (MANUAL) 3 % (0-7); LYMPHOCYTES % (MANUAL) 9 % (20-46); MONOCYTES % (MANUAL) 9 % (0-11)
[2016-06-08 12:09] VITALS: BP_SYST 138
[2016-06-08] MEDS ORDERED: FERR-57 PO (14:55)
[2016-06-08 16:12] VITALS: BP_SYST 116
[2016-06-08 16:26] VITALS: BP_SYST 116
== END 2016-06-08 17:10 | disposition home health service (06) | DRG 812 ==
LOC: SED 08:29 → STU 13:27
PROC: 30233N1 Transfusion of Nonautologous Red Blood Cells into Peripheral Vein, Percutaneous Approach (ICD-10-PCS; principal; 2016-06-07)
DX: D64.9 Anemia, unspecified (principal); M86.9 Osteomyelitis, unspecified; D63.8 Anemia in other chronic diseases classified elsewhere; E11.621 Type 2 diabetes mellitus with foot ulcer; N18.9 Chronic kidney disease, unspecified; E11.22 Type 2 diabetes mellitus with diabetic chronic kidney disease; L97.519 Non-pressure chronic ulcer of other part of right foot with unspecified severity; E11.69 Type 2 diabetes mellitus with other specified complication; I12.9 Hypertensive chronic kidney disease with stage 1 through stage 4 chronic kidney disease, or unspecified chronic kidney disease; D72.829 Elevated white blood cell count, unspecified; E83.51 Hypocalcemia; Z89.412 Acquired absence of left great toe; Z88.8 Allergy status to other drugs, medicaments and biological substances; Z91.013 Allergy to seafood; Z79.899 Other long term (current) drug therapy
CPT/HCPCS: 36415; 80053; 82962; 83605; 84484; 85007; 85025; 85027; 85610-TC; 85730-TC; 86886; 86900; 86901; 86920; 87040-TC; 87081; 93005; 96365; 99285; J0690; J0696; J1815; J2270; J7030; J7040; J7060; P9021